=== PATIENT | male | born 1955 | race American Indian/Alaskan Native ===

== ENCOUNTER 2021-06-30 18:13 | Emergency (ER) | payer SELFPAY ==
[2021-06-30 18:17] VITALS: BP 150/63
[2021-06-30] MEDS ORDERED: TETANUS,DIPH,PERTUSS(ACELL) VACCINE 0.5 ML SYRINGE IM ONE (19:02)
--- NOTE | 2021-06-30 19:06 | Emergency Department Report ---
ED Laceration HPI - HPI Chief Complaint: Wound/Laceration Stated Complaint: LEFT HAND LACERATION Time Seen by Provider: 06/30/21 18:23 Occurred When: Today Location: Upper Extremity Severity: mild Tetanus Status: Not up to Date Laceration Symptoms: Yes Pain, No Foreign Body Sensation, No Numbness, No Weakness Other History: This pleasant six 5-year-old male presents emergency department chief complaint of a laceration to the dorsum of the left hand at the base of the second digit. He reports he accidentally cut it with a razor. He is unsure of his last tetanus vaccine. He denies any other injuries. ED Review of Systems ROS: Stated complaint: LEFT HAND LACERATION Other details as noted in HPI Comment: All other systems reviewed and negative Constitutional: denies: chills, fever Eyes: denies: eye pain, eye discharge, vision change ENT: denies: ear pain, throat pain Respiratory: denies: cough, shortness of breath, wheezing Cardiovascular: denies: chest pain, palpitations Endocrine: no symptoms reported Gastrointestinal: denies: abdominal pain, nausea, diarrhea Genitourinary: denies: urgency, dysuria Musculoskeletal: denies: back pain, joint swelling, arthralgia Skin: as per HPI. denies: rash, lesions Neurological: denies: headache, weakness, paresthesias Psychiatric: denies: anxiety, depression Hematological/Lymphatic: denies: easy bleeding, easy bruising ED Past Medical Hx - Medications Home Medications: Home Medications Medication Instructions Recorded Confirmed Last Taken Type cephALEXin [Keflex] 500 mg PO Q6HR #40 capsule 06/30/21 Unknown Rx traMADoL [Ultram 50 MG tab] 50 mg PO Q6HR PRN #20 tablet 06/30/21 Unknown Rx Laceration Physical Exam - Exam General: Vital signs noted. No distress. Alert and acting appropriately. Laceration Location: Upper Extremity (5 cm linear dorsum of the right hand at the base the second digit. Full active range of motion of the DIP PIP and MCP joint of all digits.) Laceration Exam: Yes Normal Distal CMS, No Foreign Body, No Exposed Tendon, Vessel, or Nerve, No Tendon Injury ED Course Vital Signs 06/30/21 18:16 Temperature 98.4 F Pulse Rate 47 L Respiratory 16 Rate Blood Pressure 150/63 [Right] O2 Sat by Pulse 97 Oximetry - Laceration /Wound Repair Left Hand Wound Location: upper extremity (Dorsum left hand base of second digit) Wound Length (cm): 5 Wound's Depth, Shape: linear Wound Explored: clean Irrigated w/ Saline (ccs): 500 Betadine Prep?: Yes Anesthesia: 1% Lidocaine Volume Anesthetic (ccs): 5 Wound Debrided: minimal Wound Repaired With: sutures Suture Size/Type: 4:0 Number of Sutures: 6 Sterile Dressing Applied?: Yes Progress: Patient tolerated well less than 5 mils blood loss. ED Medical Decision Making - Differential Diagnosis laceration, abrasion, burn Critical care attestation.: If time is entered above; I have spent that time in minutes in the direct care of this critically ill patient, excluding procedure time. ED Disposition Clinical Impression: Laceration of finger Qualifiers: Encounter type: initial encounter Finger: index finger Damage to nail status: without damage Foreign body presence: without foreign body Laterality: left Qualified Code(s): S61.211A - Laceration without foreign body of left index finger without damage to nail, initial encounter Disposition: 01 HOME / SELF CARE / HOMELESS Is pt being admited?: No Condition: Stable Instructions: Laceration Care, Adult, Wound Care, Adult Prescriptions: cephALEXin [Keflex] 500 mg PO Q6HR #40 capsule traMADoL [Ultram 50 MG tab] 50 mg PO Q6HR PRN #20 tablet PRN Reason: Pain Time of Disposition: 19:06
== END 2021-06-30 20:03 | disposition home or self-care (01) ==
LOC: ED 18:13
DX: S61.211A Laceration without foreign body of left index finger without damage to nail, initial encounter (principal); Z79.899 Other long term (current) drug therapy; W26.8XXA Contact with other sharp object(s), not elsewhere classified, initial encounter; Y93.89 Activity, other specified; Y92.89 Other specified places as the place of occurrence of the external cause; Y99.8 Other external cause status
CPT/HCPCS: 90471; 90715; 99282

== ENCOUNTER 2021-12-19 18:40 | Emergency (ER) | payer OTHER ==
[2021-12-20] MEDS ORDERED: oxyCODONE /ACETAMINOPHEN 5-325MG TAB PO ONE (02:14)
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
--- NOTE | 2021-12-20 03:43 | Cat Scan Report ---
CT HEAD WITHOUT CONTRAST INDICATION: headache TECHNIQUE: All CT scans at this location are performed using CT dose reduction for ALARA by means of automated exposure control. COMPARISON: None available. FINDINGS: BRAIN: No hemorrhage or mass effect are seen. No evidence of acute infarction is noted. Slight white matter microvascular changes are seen. ORBITS: Normal as visualized. SOFT TISSUES OF HEAD: Normal. CALVARIUM: Normal. VISUALIZED PARANASAL SINUSES AND MASTOID AIR CELLS: Clear. ADDITIONAL FINDINGS: None. IMPRESSION: No acute intracranial abnormality. Signer Name: Chandana Diehl MD Signed: 12/20/2021 3:38 AM Workstation Name: [id number]
[2021-12-20 07:47] VITALS: BP 140/80
== END 2021-12-20 07:46 | disposition home or self-care (01) ==
LOC: ED 18:40
DX: S09.90XA Unspecified injury of head, initial encounter (principal); Z79.899 Other long term (current) drug therapy; W19.XXXA Unspecified fall, initial encounter; Y93.89 Activity, other specified; Y92.89 Other specified places as the place of occurrence of the external cause; Y99.8 Other external cause status
CPT/HCPCS: 70450; 99284